=== PATIENT | female | born 1985 | race Caucasian/White ===

== ENCOUNTER 2020-06-21 13:39 | Inpatient (IN) | payer OTHER ==
[2020-06-21] MEDS ORDERED: METHADONE HCL 10 MG TABLET (FOR DETOX USE ONLY) PO ONE (15:38)
[2020-06-21] MEDS ORDERED: cloNIDine HCL 0.1 MG TABLET PO PRN (15:38)
[2020-06-21] MEDS ORDERED: P-EPHED 60MG/TRIPROLIDI 2.5MG TABLET PO PRN (15:39)
[2020-06-21] MEDS ORDERED: MAGNESIUM CITRATE 300 ML BOTTLE PO PRN (15:39)
[2020-06-21] MEDS ORDERED: guaiFENesin 200 MG/10 ML 10 ML UNIT-DOSE CUPS PO PRN (15:39)
[2020-06-21] MEDS ORDERED: MAGNESIUM HYDROX 2400MG/30ML ORAL SUSPENSION 30 ML CUP PO PRN (15:39)
[2020-06-21] MEDS ORDERED: ACETAMINOPHEN 325 MG TABLET (FP) PO PRN (15:39)
[2020-06-21] MEDS ORDERED: LOPERAMIDE HCL 2 MG CAPSULE PO PRN (15:39)
[2020-06-21] MEDS ORDERED: MAG HYDROX/AL HYDROX/SIMETH 30 ML UNIT-DOSE CUP PO PRN (15:39)
[2020-06-21] MEDS ORDERED: MENTHOL/PHENOL 1 EACH UD MM PRN (15:39)
[2020-06-21] MEDS ORDERED: IBUPROFEN 400 MG TABLET (FP) PO PRN (15:39)
[2020-06-21 16:13] VITALS: BMI 31.1
[2020-06-21] MEDS: ALBUTEROL SO4 HFA INHALER IH PRN ×2 (17:07→23:47)
[2020-06-21] MEDS: NITROFURANTOIN MACROCRYSTAL 50 MG CAPSULE (FP) PO SCH ×2 (17:25→23:46)
[2020-06-21] MEDS: diazePAM 5 MG TABLET PO PRN (19:09)
[2020-06-21] MEDS: NICOTINE POLACRILEX 4 MG GUM BUC PRN (19:15)
[2020-06-21] MEDS ORDERED: MELATONIN 5 MG TABLETS PO SCH (22:00)
[2020-06-21] MEDS: hydrOXYzine PAMOATE 25 MG CAPSULE (FP) PO PRN (23:46)
[2020-06-21] MEDS: THIAMINE HCL 100 MG TABLET (FP) PO SCH (23:46)
[2020-06-22] MEDS: NITROFURANTOIN MACROCRYSTAL 50 MG CAPSULE (FP) PO SCH ×4 (06:46→23:04)
[2020-06-22] MEDS: diazePAM 5 MG TABLET PO PRN ×4 (07:10→23:04)
[2020-06-22] MEDS: ALBUTEROL SO4 HFA INHALER IH PRN ×3 (07:12→23:07)
[2020-06-22] MEDS ORDERED: METHADONE HCL 5 MG TABLET (FOR DETOX USE ONLY) ONE (09:24)
[2020-06-22] MEDS ORDERED: METHADONE HCL 10 MG TABLET (FOR DETOX USE ONLY) ONE (09:25)
[2020-06-22] MEDS ORDERED: METHADONE (DETOX) 20 MG, METHADONE (DETOX) 5 MG PO ONE (10:00)
[2020-06-22] MEDS: PRENATAL VITAMINS W/ FOLIC ACID TABLET (FP) PO SCH (10:11)
[2020-06-22] MEDS: NICOTINE 21 MG/24 HOURS TOPICAL PATCH TD SCH (10:11)
[2020-06-22] MEDS: METHOCARBAMOL 500 MG TABLET PO PRN ×2 (12:11→23:04)
[2020-06-22 13:34] LABS: BASO % 0.6 % (0-2.0); EOS % 20.1 % (0-4.5); HEMATOCRIT 36.6 % (32.4-45.2); HEMOGLOBIN 11.6 GM/dL (10.7-15.3); INR 1.08 (0.83-1.09); LYMPH % 33.6 % (8-40); MCH 23.3 pg (25.7-33.7); MCHC 31.7 g/dl (32.0-36.0); MEAN CELL VOLUME 73.6 fl (80-96); MEAN PLT VOLUME 9.7 fl (7.5-11.1); NEUT % 36.7 % (42.8-82.8); PLATELET COUNT 212 K/MM3 (134-434); PROTHROMBIN TIME (PATIENT) 13.3 SEC (9.7-13.0); RBC 4.98 M/mm3 (3.60-5.2); RDW 16.2 % (11.6-15.6); WHITE BLOOD COUNT 8.4 K/mm3 (4.0-10.0)
[2020-06-22 13:38] LABS: CALCIUM 8.7 mg/dL (8.5-10.1); CREATININE 0.8 mg/dL (0.55-1.3)
[2020-06-22 13:39] LABS: ALBUMIN 3.4 g/dl (3.4-5.0); BLOOD UREA NITROGEN 11.4 mg/dL (7-18)
[2020-06-22 13:40] LABS: BILIRUBIN,TOTAL 0.9 mg/dL (0.2-1); TOT PROT 6.3 g/dl (6.4-8.2)
[2020-06-22 16:06] LABS: ANISOCYTOSIS 1+
[2020-06-22 16:07] LABS: OVALOCYTE 1+; PLATELET ESTIMATE ADEQUATE
[2020-06-22] MEDS: SODIUM CHLORIDE NASAL SPRAY 44 ML BOTTLE NS PRN ×2 (18:45→23:07)
[2020-06-22] MEDS: SUVOREXANT 10 MG TABLET PO PRN (23:03)
[2020-06-22] MEDS: THIAMINE HCL 100 MG TABLET (FP) PO SCH (23:04)
[2020-06-23] MEDS: NITROFURANTOIN MACROCRYSTAL 50 MG CAPSULE (FP) PO SCH ×5 (06:18→23:55)
[2020-06-23] MEDS: diazePAM 5 MG TABLET PO PRN ×5 (06:19→23:56)
[2020-06-23] MEDS: ALBUTEROL SO4 HFA INHALER IH PRN (06:24)
[2020-06-23] MEDS ORDERED: METHADONE HCL 10 MG TABLET (FOR DETOX USE ONLY) PO ONE (10:00)
[2020-06-23] MEDS: NICOTINE 21 MG/24 HOURS TOPICAL PATCH TD SCH (10:12)
[2020-06-23] MEDS: METHOCARBAMOL 500 MG TABLET PO PRN ×2 (10:15→16:48)
[2020-06-23] MEDS: PRENATAL VITAMINS W/ FOLIC ACID TABLET (FP) PO SCH (10:15)
[2020-06-23] MEDS: NICOTINE POLACRILEX 4 MG GUM BUC PRN (17:34)
[2020-06-23] MEDS: THIAMINE HCL 100 MG TABLET (FP) PO SCH (22:22)
[2020-06-23] MEDS: hydrOXYzine PAMOATE 25 MG CAPSULE (FP) PO PRN (22:25)
[2020-06-23] MEDS: SUVOREXANT 10 MG TABLET PO PRN (22:25)
[2020-06-24] MEDS: NITROFURANTOIN MACROCRYSTAL 50 MG CAPSULE (FP) PO SCH ×3 (05:29→18:13)
[2020-06-24] MEDS: diazePAM 5 MG TABLET PO PRN ×2 (05:31→10:05)
[2020-06-24] MEDS: NICOTINE POLACRILEX 4 MG GUM BUC PRN ×2 (05:31→19:39)
[2020-06-24] MEDS: METHOCARBAMOL 500 MG TABLET PO PRN ×2 (06:19→16:54)
[2020-06-24] MEDS: hydrOXYzine PAMOATE 25 MG CAPSULE (FP) PO PRN ×2 (08:41→16:54)
[2020-06-24] MEDS ORDERED: METHADONE HCL 5 MG TABLET (FOR DETOX USE ONLY) ONE (09:04)
[2020-06-24] MEDS ORDERED: METHADONE HCL 10 MG TABLET (FOR DETOX USE ONLY) ONE (09:04)
[2020-06-24] MEDS ORDERED: METHADONE (DETOX) 10 MG, METHADONE (DETOX) 5 MG PO ONE (10:00)
[2020-06-24] MEDS: PRENATAL VITAMINS W/ FOLIC ACID TABLET (FP) PO SCH (10:09)
[2020-06-24] MEDS: NICOTINE 21 MG/24 HOURS TOPICAL PATCH TD SCH (10:09)
[2020-06-24] MEDS ORDERED: hydrOXYzine PAMOATE 25 MG CAPSULE (FP) PO ONE (19:43)
[2020-06-24] MEDS: SUVOREXANT 10 MG TABLET PO PRN (22:43)
[2020-06-24] MEDS: THIAMINE HCL 100 MG TABLET (FP) PO SCH (22:44)
[2020-06-25] MEDS: NITROFURANTOIN MACROCRYSTAL 50 MG CAPSULE (FP) PO SCH ×4 (05:56→17:53)
[2020-06-25] MEDS: hydrOXYzine PAMOATE 25 MG CAPSULE (FP) PO PRN (05:57)
[2020-06-25] MEDS: NICOTINE POLACRILEX 4 MG GUM BUC PRN ×2 (05:59→14:14)
[2020-06-25] MEDS ORDERED: METHADONE HCL 10 MG TABLET (FOR DETOX USE ONLY) PO ONE (10:00)
[2020-06-25] MEDS: PRENATAL VITAMINS W/ FOLIC ACID TABLET (FP) PO SCH (10:20)
[2020-06-25] MEDS: METHOCARBAMOL 500 MG TABLET PO PRN (10:20)
[2020-06-25] MEDS: NICOTINE 21 MG/24 HOURS TOPICAL PATCH TD SCH (10:21)
[2020-06-25] MEDS ORDERED: HYDROXY PO PRN (10:22)
[2020-06-25] MEDS ORDERED: METHOCARBAMOL 750 MG TAB PO ONE (10:30)
[2020-06-25] MEDS: THIAMINE HCL 100 MG TABLET (FP) PO SCH (23:34)
[2020-06-26] MEDS: NITROFURANTOIN MACROCRYSTAL 50 MG CAPSULE (FP) PO SCH ×2 (00:19→06:06)
[2020-06-26] MEDS ORDERED: METHADONE HCL 5 MG TABLET (FOR DETOX USE ONLY) PO ONE (06:00)
[2020-06-26 06:13] VITALS: TEMP 97.3
[2020-06-26 09:27] VITALS: BP 103/65; PULSE 100
== END 2020-06-26 09:38 | disposition home or self-care (01) | DRG 773 ==
LOC: YASAS 13:39 → Y6N 15:37
PROVIDERS: ADMIT Allergy & Immunology; ATTEND Allergy & Immunology
PROC: HZ2ZZZZ Detoxification Services for Substance Abuse Treatment (ICD-10-PCS; principal; 2020-06-21)
DX: F11.23 Opioid dependence with withdrawal (principal); F12.10 Cannabis abuse, uncomplicated; F17.210 Nicotine dependence, cigarettes, uncomplicated; F19.280 Other psychoactive substance dependence with psychoactive substance-induced anxiety disorder; F19.282 Other psychoactive substance dependence with psychoactive substance-induced sleep disorder; F41.0 Panic disorder [episodic paroxysmal anxiety]; N39.0 Urinary tract infection, site not specified; R21 Rash and other nonspecific skin eruption; J45.909 Unspecified asthma, uncomplicated; Z86.2 Personal history of diseases of the blood and blood-forming organs and certain disorders involving the immune mechanism; Z56.0 Unemployment, unspecified
CPT/HCPCS: 36415; 80053; 81025; 85025; 85610; 86780; 93005; 93010; C9803; U0003

== ENCOUNTER 2020-07-25 08:17 | Inpatient (IN) | payer OTHER ==
[2020-07-25 08:43] VITALS: BMI 27.8
[2020-07-25] MEDS ORDERED: MAGNESIUM CITRATE 300 ML BOTTLE PO PRN (08:56)
[2020-07-25] MEDS ORDERED: METHADONE HCL 10 MG TABLET (FOR DETOX USE ONLY) PO ONE (08:56)
[2020-07-25] MEDS ORDERED: ONDANSETRON *ODT* 4 MG TABLET SL PRN (08:56)
[2020-07-25] MEDS ORDERED: MENTHOL/PHENOL 1 EACH UD MM PRN (08:56)
[2020-07-25] MEDS ORDERED: MAG HYDROX/AL HYDROX/SIMETH 30 ML UNIT-DOSE CUP PO PRN (08:56)
[2020-07-25] MEDS ORDERED: ACETAMINOPHEN 325 MG TABLET (FP) PO PRN ×2 (08:56)
[2020-07-25] MEDS ORDERED: cloNIDine HCL 0.1 MG TABLET PO PRN (08:56)
[2020-07-25] MEDS ORDERED: BISMUTH SUBSALICYLATE 262 MG/15 ML BTL PO PRN (08:56)
[2020-07-25] MEDS ORDERED: IBUPROFEN 400 MG TABLET (FP) PO PRN (08:56)
[2020-07-25] MEDS ORDERED: MAGNESIUM HYDROX 2400MG/30ML ORAL SUSPENSION 30 ML CUP PO PRN (08:56)
[2020-07-25] MEDS ORDERED: NICOTINE POLACRILEX 2 MG GUM BUC PRN (08:56)
[2020-07-25] MEDS: METHOCARBAMOL 500 MG TABLET PO PRN ×2 (09:27→17:35)
[2020-07-25] MEDS: PRENATAL VITAMINS W/ FOLIC ACID TABLET (FP) PO SCH (09:27)
[2020-07-25] MEDS: hydrOXYzine PAMOATE 25 MG CAPSULE (FP) PO SCH ×4 (09:27→22:29)
[2020-07-25] MEDS: diazePAM 5 MG TABLET PO PRN (11:32)
[2020-07-25 13:49] LABS: HEMATOCRIT 36.6 % (32.4-45.2); HEMOGLOBIN 11.6 GM/dL (10.7-15.3); MCH 23.5 pg (25.7-33.7); MCHC 31.7 g/dl (32.0-36.0); MEAN CELL VOLUME 74.2 fl (80-96); MEAN PLT VOLUME 9.3 fl (7.5-11.1); PLATELET COUNT 225 K/MM3 (134-434); RBC 4.94 M/mm3 (3.60-5.2); RDW 14.8 % (11.6-15.6); WHITE BLOOD COUNT 7.7 K/mm3 (4.0-10.0)
[2020-07-25 14:01] LABS: POTASSIUM 3.7 mmol/L (3.5-5.1)
[2020-07-25 14:02] LABS: CALCIUM 9.2 mg/dL (8.5-10.1)
[2020-07-25 14:03] LABS: ALBUMIN 3.9 g/dl (3.4-5.0); BLOOD UREA NITROGEN 10.1 mg/dL (7-18)
[2020-07-25 14:06] LABS: CREATININE 0.8 mg/dL (0.55-1.3)
[2020-07-25 14:08] LABS: TOT PROT 7.1 g/dl (6.4-8.2)
[2020-07-25 14:40] LABS: BILIRUBIN,TOTAL 0.6 mg/dL (0.2-1)
[2020-07-25] MEDS: MELATONIN 5 MG TABLETS PO SCH (22:29)
[2020-07-25] MEDS: THIAMINE HCL 100 MG TABLET (FP) PO SCH (22:29)
[2020-07-26] MEDS: hydrOXYzine PAMOATE 25 MG CAPSULE (FP) PO SCH ×5 (05:56→22:23)
[2020-07-26] MEDS: diazePAM 5 MG TABLET PO PRN ×5 (05:57→22:23)
[2020-07-26] MEDS ORDERED: METHADONE HCL 10 MG TABLET (FOR DETOX USE ONLY) ONE (09:29)
[2020-07-26] MEDS ORDERED: METHADONE HCL 5 MG TABLET (FOR DETOX USE ONLY) ONE (09:30)
[2020-07-26] MEDS: PRENATAL VITAMINS W/ FOLIC ACID TABLET (FP) PO SCH (09:54)
[2020-07-26] MEDS: METHOCARBAMOL 500 MG TABLET PO PRN ×2 (09:55→17:41)
[2020-07-26] MEDS ORDERED: ALBUTEROL SO4 HFA INHALER IH PRN (09:57)
[2020-07-26] MEDS ORDERED: METHADONE (DETOX) 20 MG, METHADONE (DETOX) 5 MG PO ONE (10:00)
[2020-07-26] MEDS: THIAMINE HCL 100 MG TABLET (FP) PO SCH (22:23)
[2020-07-26] MEDS: MELATONIN 5 MG TABLETS PO SCH (22:23)
[2020-07-27] MEDS: hydrOXYzine PAMOATE 25 MG CAPSULE (FP) PO SCH ×4 (06:25→17:29)
[2020-07-27] MEDS: diazePAM 5 MG TABLET PO PRN ×3 (06:27→16:21)
[2020-07-27] MEDS: METHOCARBAMOL 500 MG TABLET PO PRN ×2 (06:28→13:18)
[2020-07-27] MEDS: PRENATAL VITAMINS W/ FOLIC ACID TABLET (FP) PO SCH (09:53)
[2020-07-27] MEDS ORDERED: METHADONE HCL 10 MG TABLET (FOR DETOX USE ONLY) PO ONE (10:00)
[2020-07-27] MEDS ORDERED: NICOTINE 14 MG/24 HOURS TOPICAL PATCH TD SCH (11:45)
[2020-07-27 19:35] VITALS: BP 107/69; PULSE 90; TEMP 97.5
[2020-07-28] MEDS ORDERED: METHADONE (DETOX) 10 MG, METHADONE (DETOX) 5 MG PO ONE (10:00)
[2020-07-29] MEDS ORDERED: METHADONE HCL 10 MG TABLET (FOR DETOX USE ONLY) PO ONE (10:00)
[2020-07-30] MEDS ORDERED: METHADONE HCL 5 MG TABLET (FOR DETOX USE ONLY) PO ONE (06:00)
== END 2020-07-27 20:30 | disposition left against medical advice (07) | DRG 770 ==
LOC: YASAS 08:17 → Y3N 08:51
PROVIDERS: ADMIT Allergy & Immunology; ATTEND Allergy & Immunology
PROC: HZ2ZZZZ Detoxification Services for Substance Abuse Treatment (ICD-10-PCS; principal; 2020-07-25)
DX: F11.23 Opioid dependence with withdrawal (principal); F13.20 Sedative, hypnotic or anxiolytic dependence, uncomplicated; F12.10 Cannabis abuse, uncomplicated; F17.210 Nicotine dependence, cigarettes, uncomplicated; F41.9 Anxiety disorder, unspecified; J45.909 Unspecified asthma, uncomplicated; N39.0 Urinary tract infection, site not specified; Z86.2 Personal history of diseases of the blood and blood-forming organs and certain disorders involving the immune mechanism; R63.4 Abnormal weight loss; Z68.27 Body mass index [BMI] 27.0-27.9, adult
CPT/HCPCS: 36415; 80053; 85027; 86780; C9803; U0003